=== PATIENT | male | born 1970 | race Caucasian/White ===

== ENCOUNTER 2017-09-04 14:59 | Inpatient (IN) | payer MEDICAID ==
[~2017-09-04] VITALS: Ht 172.7 cm; Wt 64.8 kg
[2017-09-04] MEDS ORDERED: SODIUM CHLORIDE 0.9% 1,000 ML IV ONE (15:42)
[2017-09-04] MEDS ORDERED: ALBUTEROL/IPRATROPIUM 2.5MG/0.5MG, 3 ML ONE (15:53)
[2017-09-04] MEDS ORDERED: ALBUTEROL/IPRATROPIUM 2.5MG/0.5MG, 3 ML NPPB ONE (16:00)
[2017-09-04] MEDS ORDERED: SODIUM CHLORIDE FLUSH 10ML SYR IVF ONE (16:00)
[2017-09-04] MEDS ORDERED: SODIUM CHLORIDE 0.9% 1,000ML IVBOLUS ONE (16:00)
[2017-09-04 16:05] LABS: HEMOGLOBIN 15.4 g/dL (13.7-18.0); WHITE BLOOD COUNT 14.4 x10^3/uL (3.4-10)
[2017-09-04 16:13] LABS: RAPID INFLUENZA A Negative (Negative); RAPID INFLUENZA B Negative (Negative)
[2017-09-04 16:19] LABS: BLOOD UREA NITROGEN 10 mg/dL (7-18)
[2017-09-04 16:25] LABS: ASPARTATE AMINO TRANSFERASE 16 U/L (15-37)
[2017-09-04 16:28] LABS: IS PT STATUS REG ER OR PRE ER? YES
[2017-09-04] MEDS ORDERED: AZITHROMYCIN 500 MG in SODIUM CHLORIDE 0.9% 250 ML IVPB ONE (17:00)
[2017-09-04] MEDS ORDERED: CEFTRIAXONE PMX 1GM/50ML 50 ML IVPB ONE (17:00)
[2017-09-04] MEDS ORDERED: SODIUM CHLORIDE FLUSH 10ML SYR IVF PRN (17:00)
[2017-09-04] MEDS ORDERED: morphine SULFATE 10 MG/ML, 1ML IVPush PRN (17:30)
[2017-09-04] MEDS ORDERED: hydrALAzine 20 MG/ML, 1ML IVPush PRN (17:30)
[2017-09-04] MEDS ORDERED: ZOLPIDEM 5MG TABLET PO PRN (17:30)
[2017-09-04] MEDS ORDERED: PIPERACILLIN/TAZO/PMX 3.375GM 50 ML IV SCH (17:30)
[2017-09-04] MEDS ORDERED: ACETAMINOPHEN 325 MG TABLET PO PRN (17:30)
[2017-09-04] MEDS ORDERED: VANCOMYCIN PER PHARMACY MC PRN (17:30)
[2017-09-04] MEDS ORDERED: ONDANSETRON 2MG/ML, 2ML IVPush PRN (17:30)
[2017-09-04] MEDS: methylPREDNISolone SOD SUCC 40 MG/ML IVPush SCH ×2 (17:43→23:47)
[2017-09-04] MEDS ORDERED: CEFTRIAXONE PMX 1GM/50ML 50 ML ONE (17:44)
[2017-09-04] MEDS ORDERED: ENOXAPARIN 40 MG/0.4 ML ONE (17:45)
[2017-09-04] MEDS ORDERED: NICOTINE 14MG/24 HR PATCH.TD24 ONE (17:45)
[2017-09-04] MEDS ORDERED: FLUT1AER INH (17:48)
[2017-09-04] MEDS ORDERED: PRED10TA PO (17:48)
[2017-09-04] MEDS ORDERED: ALBU8.5H8 INH (17:48)
[2017-09-04] MEDS: ENOXAPARIN 40 MG/0.4 ML SQ SCH (17:49)
[2017-09-04] MEDS: NICOTINE 14MG/24 HR PATCH.TD24 TD SCH (17:54)
[2017-09-04] MEDS ORDERED: PHARMACOKINETIC MONITORING MC PRN (20:30)
[2017-09-04] MEDS ORDERED: PHARMACOKINETIC CONSULTATION MC ONE (20:30)
[2017-09-04] MEDS: PIPERACILLIN/TAZO 3.375 GM in SODIUM CHLORIDE 0.9% 50 ML IV SCH (20:35)
[2017-09-04] MEDS: SODIUM CHLORIDE 0.9% 1,000 ML IV SCH (20:35)
[2017-09-04] MEDS: VANCOMYCIN 1,300 MG in SODIUM CHLORIDE 0.9% 250 ML IV SCH (21:38)
[2017-09-05 01:54] VITALS: BP 111/75
[2017-09-05] MEDS: PIPERACILLIN/TAZO 3.375 GM in SODIUM CHLORIDE 0.9% 50 ML IV SCH ×4 (02:10→19:43)
[2017-09-05 02:20] VITALS: BP 145/92
[2017-09-05 04:54] LABS: HEMATOCRIT 45.6 % (39.2-51.8); HEMOGLOBIN 15.5 g/dL (13.7-18.0); WHITE BLOOD COUNT 10.1 x10^3/uL (3.4-10)
[2017-09-05 04:55] LABS: BLOOD UREA NITROGEN 10 mg/dL (7-18)
[2017-09-05 04:58] LABS: ASPARTATE AMINO TRANSFERASE 19 U/L (15-37)
[2017-09-05] MEDS ORDERED: ALBUTEROL SULFATE 2.5 MG/3 ML NPPB PRN (05:00)
[2017-09-05] MEDS: methylPREDNISolone SOD SUCC 40 MG/ML IVPush SCH (05:21)
[2017-09-05 08:05] VITALS: BP 132/83
[2017-09-05] MEDS: SODIUM CHLORIDE 0.9% 1,000 ML IV SCH (09:23)
[2017-09-05] MEDS: VANCOMYCIN 1,300 MG in SODIUM CHLORIDE 0.9% 250 ML IV SCH ×2 (09:23→20:42)
[2017-09-05] MEDS ORDERED: SODIUM PHOSPHATE 20 MMOL in SODIUM CHLORIDE 0.9% 500 ML IV ONE (10:00)
[2017-09-05 14:33] VITALS: BP 124/85
[2017-09-05] MEDS: NICOTINE 14MG/24 HR PATCH.TD24 TD SCH (16:20)
[2017-09-05] MEDS: ENOXAPARIN 40 MG/0.4 ML SQ SCH (16:20)
[2017-09-05 21:44] VITALS: BP 130/94
== END 2017-09-05 22:10 | disposition left against medical advice (07) | DRG 871 ==
LOC: ED 16:46 → EDIP 17:00 → SUATTDRO 17:19 → 4EST 19:41
PROVIDERS: ADMIT Internal Medicine; ATTEND Internal Medicine
DX: A41.9 Sepsis, unspecified organism (principal); J18.1 Lobar pneumonia, unspecified organism; D89.9 Disorder involving the immune mechanism, unspecified; E46 Unspecified protein-calorie malnutrition; J82 Pulmonary eosinophilia, not elsewhere classified; Z53.21 Procedure and treatment not carried out due to patient leaving prior to being seen by health care provider; Z68.21 Body mass index [BMI] 21.0-21.9, adult; F17.210 Nicotine dependence, cigarettes, uncomplicated; J45.909 Unspecified asthma, uncomplicated; T38.0X5A Adverse effect of glucocorticoids and synthetic analogues, initial encounter; Z85.72 Personal history of non-Hodgkin lymphomas
CPT/HCPCS: 36415; 71010; 80053; 83605; 83735; 83880; 84100; 84145; 84484; 85025; 87040; 87400; 93005; 93306; 94640; 96361; 96365; J0696; J1650; J3370; J7613; J7620; J2920; J7030; J7040; J7050; J7512

== ENCOUNTER 2018-10-10 14:51 | Inpatient (IN) | payer MEDICAID, OTHER ==
[~2018-10-10] VITALS: Ht 172.7 cm; Wt 71.4 kg
[~2018-10-10 14:51] MED LIST: ALBU8.5H8 INH; FLUT1AER INH; PRED10TA PO
[2018-10-10] MEDS ORDERED: ALBUTEROL/IPRATROPIUM 2.5MG/0.5MG, 3 ML ONE (15:11)
[2018-10-10] MEDS: ALBUTEROL/IPRATROPIUM 2.5MG/0.5MG, 3 ML NPPB SCH ×4 (15:16→22:40)
[2018-10-10 15:25] LABS: BASOPHILS # (AUTO) 0.04 x10^3/uL (0-0.1); BASOPHILS % (AUTO) 0 % (0-1); EOSINOPHILS # (AUTO) 1.62 x10^3/uL (0-0.4); EOSINOPHILS % (AUTO) 12 % (1-7); LYMPHOCYTES # (AUTO) 1.97 x10^3/uL (1-3.4); LYMPHOCYTES % (AUTO) 15 % (22-44); MD NO; MEAN CORPUSCULAR HEMOGLOBIN 30.9 pg (27.5-34.5); MEAN CORPUSCULAR HGB CONC 33.6 g/dL (33.2-36.2); MEAN CORPUSCULAR VOLUME 91.7 fL (81-97); MONOCYTES # (AUTO) 0.99 x10^3/uL (0.2-0.8); MONOCYTES % (AUTO) 8 % (2-9); NEUTROPHILS # (AUTO) 8.57 x10^3/uL (1.8-6.8); NEUTROPHILS % (AUTO) 65 % (42-75); PLATELET COUNT 324 x10^3/uL (130-400); RED BLOOD COUNT 5.31 x10^6/uL (4.38-5.82); RED CELL DISTRIBUTION WIDTH 14.3 % (9.4-14.8)
--- NOTE | 2018-10-10 15:35 | NUR ---
PATIENT PRESENTS TO ED TODAY FOR SOB UPON EXERTION, PATIENT STATES "I AM HOSPITALIZED EVERY 3-4 WEEKS. HX- PNA AND ASTHMA. RT COMPLETED BREATHING TREATMENT, LABS DRAWN, XRAY COMPLETED, AWAITING RESULTS. SUPPLEMENTAL O2 GIVEN FO 88% RA, PATIENT 92% 3L NC, PATIENT DENIES HOME 02. SKIN WARM, PINK, DRY, PATIENT SPEAKING FULL SENTENCES. VS UPDATED IN CHART, INSOLE PRESSER ON PATIENT, CALL LIGHT WITHIN REACH.
[2018-10-10 15:38] LABS: ALBUMIN 3.3 g/dL (3.4-5.0); ANION GAP 7 mmol/L (5-15); CALCIUM 8.4 mg/dL (8.5-10.1); CHLORIDE 109 mmol/L (98-107); CREATININE 0.95 mg/dL (0.7-1.3)
[2018-10-10] MEDS ORDERED: ALBU0.63 NEB (15:42)
[2018-10-10 15:45] LABS: TROPONIN I < 0.015 ng/mL (0.000-0.045)
--- NOTE | 2018-10-10 15:54 | NUR ---
LAB AT BEDSIDE FOR BLOOD CULTURES.
[2018-10-10] MEDS ORDERED: AZITHROMYCIN 500 MG in SODIUM CHLORIDE 0.9% 250 ML IV ONE (16:00)
[2018-10-10 16:03] LABS: HCT (SEDRATE) 48.7 % (39.2-51.8)
--- NOTE | 2018-10-10 16:05 | NUR ---
IV ESTABLISHED, BLOOD CULTURES DRAWN X 2, ABX AMINISTERED. PATIENT SITTING COMFORTABLY ON GURNEY WATCHING TV, NADN.
--- NOTE | 2018-10-10 16:30 | NUR ---
ADMITING MD IN ROOM WITH PATIENT
[2018-10-10] MEDS ORDERED: ACETAMINOPHEN 325 MG TABLET PO PRN (17:00)
[2018-10-10] MEDS ORDERED: ALBUTEROL SULFATE 2.5 MG/3 ML NPPB PRN (17:00)
[2018-10-10] MEDS ORDERED: LABETALOL 5MG/ML, 20ML IVPush PRN (17:00)
[2018-10-10] MEDS ORDERED: hydrALAzine 20 MG/ML, 1ML IVPush PRN (17:00)
[2018-10-10] MEDS ORDERED: ALBUTEROL/IPRATROPIUM 2.5MG/0.5MG, 3 ML HHN SCH (17:00)
--- NOTE | 2018-10-10 17:05 | NUR ---
PATIENT TO CT, NAD NOTED.
--- NOTE | 2018-10-10 17:18 | NUR ---
PATIENT BACK FROM CT, SITTING COMFORTABLY ON BAKARI CAMPBELL. VS UPDATED IN CHART.
[2018-10-10] MEDS ORDERED: OMNIPAQUE 350 MG/ML, 75ML BOTTLE ONE (17:25)
--- NOTE | 2018-10-10 17:28 | NUR ---
REPORT TO ANGEL LUIS CERVANTES.
--- NOTE | 2018-10-10 17:32 | NUR ---
PATIENT TRANSFERRED/ADMITTED TO HOSPITAL BED UPSTAIRS AT THIS TIME.
[2018-10-10 17:39] LABS: INTERNATIONAL NORMALIZED RATIO 1.08 (0.93-1.1); PROTHROMBIN TIME 11.4 Seconds (9.6-11.5)
[2018-10-10 17:45] LABS: TROPONIN I < 0.015 ng/mL (0.000-0.045)
[2018-10-10 17:55] VITALS: BP 109/75
[2018-10-10] MEDS: HEPARIN 5,000 UNITS/ML, 1ML SQ SCH (18:00)
[2018-10-10] MEDS: GUAIFENESIN 200 MG TABLET PO SCH ×2 (18:18→20:24)
[2018-10-10] MEDS: methylPREDNISolone SOD SUCC 125 MG/2 ML IVPush SCH (18:18)
[2018-10-10] MEDS: SODIUM CHLORIDE 0.9% 1,000 ML IV SCH (18:18)
[2018-10-10] MEDS ORDERED: CEFTRIAXONE PMX 1GM/50ML 50 ML IV SCH (18:30)
[2018-10-10 19:25] VITALS: BP 110/76
[2018-10-10] MEDS: BUDESONIDE 0.5 MG/2 ML INHA INH SCH ×2 (19:41→21:00)
[2018-10-10] MEDS: DOXYCYCLINE 100MG TABLET PO SCH (20:24)
[2018-10-10 22:06] LABS: RAPID INFLUENZA A Negative (Negative); RAPID INFLUENZA B Negative (Negative)
[2018-10-10 23:01] LABS: TROPONIN I < 0.015 ng/mL (0.000-0.045)
[2018-10-11] MEDS: methylPREDNISolone SOD SUCC 125 MG/2 ML IVPush SCH ×3 (00:18→11:35)
[2018-10-11] MEDS: HEPARIN 5,000 UNITS/ML, 1ML SQ SCH ×2 (00:19→10:00)
[2018-10-11 01:11] VITALS: BP 128/77
[2018-10-11] MEDS: GUAIFENESIN 200 MG TABLET PO SCH ×2 (06:00→11:35)
[2018-10-11] MEDS: ALBUTEROL/IPRATROPIUM 2.5MG/0.5MG, 3 ML NPPB SCH ×2 (06:00→10:00)
[2018-10-11 06:01] LABS: ALBUMIN 3.1 g/dL (3.4-5.0); ANION GAP 4 mmol/L (5-15); CALCIUM 8.5 mg/dL (8.5-10.1); CHLORIDE 108 mmol/L (98-107)
[2018-10-11 06:06] LABS: ALANINE AMINOTRANSFERASE 21 U/L (12-78); ALKALINE PHOSPHATASE 78 U/L (45-117); BILIRUBIN,TOTAL 0.5 mg/dL (0.2-1.0); CREATININE 0.92 mg/dL (0.7-1.3); TOTAL PROTEIN 7.1 g/dL (6.4-8.2)
[2018-10-11 06:15] LABS: BASOPHILS # (AUTO) 0.01 x10^3/uL (0-0.1); BASOPHILS % (AUTO) 0 % (0-1); EOSINOPHILS % (AUTO) 0 % (1-7); LYMPHOCYTES # (AUTO) 0.66 x10^3/uL (1-3.4); LYMPHOCYTES % (AUTO) 8 % (22-44); MD NO; MEAN CORPUSCULAR HEMOGLOBIN 30.6 pg (27.5-34.5); MEAN CORPUSCULAR HGB CONC 33.8 g/dL (33.2-36.2); MEAN CORPUSCULAR VOLUME 90.8 fL (81-97); MEAN PLATELET VOLUME 8.1 fL (7.4-10.4); MONOCYTES # (AUTO) 0.09 x10^3/uL (0.2-0.8); MONOCYTES % (AUTO) 1 % (2-9); NEUTROPHILS # (AUTO) 7.93 x10^3/uL (1.8-6.8); NEUTROPHILS % (AUTO) 91 % (42-75); PLATELET COUNT 335 x10^3/uL (130-400); RED BLOOD COUNT 4.99 x10^6/uL (4.38-5.82); RED CELL DISTRIBUTION WIDTH 13.9 % (9.4-14.8)
[2018-10-11] MEDS: BUDESONIDE 0.5 MG/2 ML INHA INH SCH (07:23)
[2018-10-11 07:49] VITALS: BP 123/79
[2018-10-11] MEDS: DOXYCYCLINE 100MG TABLET PO SCH (08:09)
[2018-10-11] MEDS: SODIUM CHLORIDE 0.9% 1,000 ML IV SCH (11:35)
== END 2018-10-11 13:39 | disposition left against medical advice (07) | DRG 196 ==
LOC: ED 16:31 → EDIP 16:32 → 3NE 17:35
PROVIDERS: ADMIT Hospitalist; ATTEND Hospitalist
DX: J82 Pulmonary eosinophilia, not elsewhere classified (principal); J96.01 Acute respiratory failure with hypoxia; J18.9 Pneumonia, unspecified organism; E44.1 Mild protein-calorie malnutrition; J44.1 Chronic obstructive pulmonary disease with (acute) exacerbation; J44.0 Chronic obstructive pulmonary disease with (acute) lower respiratory infection; J45.901 Unspecified asthma with (acute) exacerbation; D89.9 Disorder involving the immune mechanism, unspecified; I45.81 Long QT syndrome; J20.9 Acute bronchitis, unspecified; R00.0 Tachycardia, unspecified; R91.1 Solitary pulmonary nodule; Z79.52 Long term (current) use of systemic steroids; Z68.23 Body mass index [BMI] 23.0-23.9, adult; Z85.71 Personal history of Hodgkin lymphoma; Z85.72 Personal history of non-Hodgkin lymphomas; Z87.891 Personal history of nicotine dependence; Z90.81 Acquired absence of spleen
CPT/HCPCS: 36415; 84145; 87400; 99285; J7620; J7626; 71045; 71260; 80048; 80053; 82040; 83605; 83880; 84484; 85025; 85379; 85610; 85651; 85730; 86140; 87040; 87070; 87077; 87205; 93005; 94640; G0378; J0456; J0696; Q9967; J2930; J7030; J7050; J7512

== ENCOUNTER 2018-11-05 19:40 | Inpatient (IN) | payer OTHER ==
[~2018-11-05] VITALS: Ht 172.7 cm; Wt 71.7 kg
[~2018-11-05 19:40] MED LIST changes: +ALBU0.63 NEB
--- NOTE | 2018-11-05 19:44 | NUR ---
ALTON APODACA, AT BEDSIDE TO EVALUATE PT.
[2018-11-05] MEDS ORDERED: ALBUTEROL/IPRATROPIUM 2.5MG/0.5MG, 3 ML NPPB ONE (20:00)
[2018-11-05] MEDS ORDERED: ALBUTEROL/IPRATROPIUM 2.5MG/0.5MG, 3 ML ONE (20:14)
[2018-11-05] MEDS ORDERED: BUDESONIDE 0.5 MG/2 ML INHA ONE (20:14)
--- NOTE | 2018-11-05 20:25 | NUR ---
RT at bedside.
[2018-11-05] MEDS ORDERED: ALBUTEROL/IPRATROPIUM 2.5MG/0.5MG, 3 ML NEB ONE (20:30)
[2018-11-05] MEDS ORDERED: BUDESONIDE 0.5 MG/2 ML INHA INH ONE (20:30)
--- NOTE | 2018-11-05 20:50 | NUR ---
Pt resting on gurney, on continous albuterol. Pt states he feels ok while not moving around and not talking, however SOB if he talks a lot.
[2018-11-05] MEDS ORDERED: ALBUTEROL SULFATE 2.5MG/0.5ML ONE (20:57)
[2018-11-05] MEDS ORDERED: ALBUTEROL 0.5%, 20ML NPPBCONT PRN (21:00)
--- NOTE | 2018-11-05 21:40 | NUR ---
BREAK RN: Patient with continuous nebulizer, reporting some improvement in shortness of breath.
--- NOTE | 2018-11-05 22:52 | NUR ---
Dr. Felix at bedside to discuss ED findings and POC. Pt aware of plan to be admitted to the hospital. Pt states that he will not AMA this time.
--- NOTE | 2018-11-05 23:13 | NUR ---
Zahra ALVAREZ, at bedside to evaluate pt for admission.
--- NOTE | 2018-11-05 23:21 | NUR ---
SBAR given to RNGriselda. Pt made aware of new room assignment.
[2018-11-06] MEDS ORDERED: DOCUSATE 100 MG CAPSULE PO PRN
[2018-11-06] MEDS ORDERED: GABAPENTIN 300 MG CAPSULE PO PRN
[2018-11-06] MEDS ORDERED: LIDODERM 5% PATCH TD PRN
[2018-11-06] MEDS ORDERED: hydrALAzine 20 MG/ML, 1ML IVPush PRN
[2018-11-06] MEDS ORDERED: DIPHENHYDRAMINE 25 MG CAPSULE PO PRN
[2018-11-06] MEDS ORDERED: ONDANSETRON ODT 4 MG PO PRN
[2018-11-06 00:03] VITALS: BP 130/72
[2018-11-06 02:00] VITALS: BP 130/72
[2018-11-06] MEDS: GUAIFENESIN/DM 100-10MG, 5ML UDC PO PRN ×2 (03:39→14:19)
[2018-11-06 05:03] LABS: BASOPHILS # (AUTO) 0.01 x10^3/uL (0-0.1); BASOPHILS % (AUTO) 0 % (0-1); EOSINOPHILS # (AUTO) 0.01 x10^3/uL (0-0.4); EOSINOPHILS % (AUTO) 0 % (1-7); LYMPHOCYTES # (AUTO) 0.77 x10^3/uL (1-3.4); LYMPHOCYTES % (AUTO) 12 % (22-44); MD NO; MEAN CORPUSCULAR HEMOGLOBIN 30.1 pg (27.5-34.5); MEAN CORPUSCULAR HGB CONC 33.3 g/dL (33.2-36.2); MEAN CORPUSCULAR VOLUME 90.5 fL (81-97); MEAN PLATELET VOLUME 7.8 fL (7.4-10.4); MONOCYTES % (AUTO) 5 % (2-9); NEUTROPHILS # (AUTO) 5.18 x10^3/uL (1.8-6.8); NEUTROPHILS % (AUTO) 83 % (42-75); PLATELET COUNT 334 x10^3/uL (130-400); RED BLOOD COUNT 4.97 x10^6/uL (4.38-5.82); RED CELL DISTRIBUTION WIDTH 15.1 % (9.4-14.8)
[2018-11-06 05:15] LABS: ANION GAP 6 mmol/L (5-15); CALCIUM 8.4 mg/dL (8.5-10.1); CHLORIDE 112 mmol/L (98-107)
[2018-11-06 05:16] LABS: CREATININE 0.92 mg/dL (0.7-1.3)
[2018-11-06] MEDS: ALBUTEROL SULFATE 2.5 MG/3 ML NPPB SCH ×3 (07:30→15:33)
[2018-11-06 07:59] VITALS: BP 130/73
[2018-11-06] MEDS ORDERED: BUDESONIDE 0.5 MG/2 ML INHA INH SCH (09:00)
[2018-11-06] MEDS ORDERED: ACETAMINOPHEN 325 MG TABLET PO PRN ×2 (09:00)
[2018-11-06] MEDS ORDERED: SODIUM CHLORIDE 0.9% 1,000 ML IV SCH ×2 (09:00)
[2018-11-06] MEDS ORDERED: ENOXAPARIN 40 MG/0.4 ML SQ SCH (09:00)
[2018-11-06 12:47] VITALS: BP 120/75
== END 2018-11-06 17:51 | disposition home or self-care (01) | DRG 189 ==
LOC: ED 20:26 → EDIP 22:48 → 4EST 23:40
PROVIDERS: ADMIT Internal Medicine; ATTEND Internal Medicine
DX: J96.01 Acute respiratory failure with hypoxia (principal); J44.1 Chronic obstructive pulmonary disease with (acute) exacerbation; J45.901 Unspecified asthma with (acute) exacerbation; J98.11 Atelectasis; D89.9 Disorder involving the immune mechanism, unspecified; F17.200 Nicotine dependence, unspecified, uncomplicated; Z87.01 Personal history of pneumonia (recurrent); Z85.72 Personal history of non-Hodgkin lymphomas; Z90.81 Acquired absence of spleen
CPT/HCPCS: 36415; 99285; J7613; J7620; J7626; 71045; 80048; 85025; 93005; 94640; G0378; J1650; J7030; J7512

== ENCOUNTER 2019-08-25 00:09 | Inpatient (IN) | payer OTHER ==
[~2019-08-25] VITALS: Ht 172.7 cm; Wt 75.8 kg
[2019-08-25] MEDS ORDERED: methylPREDNISolone SOD SUCC 125 MG/2 ML ONE (00:32)
[2019-08-25] MEDS ORDERED: SODIUM CHLORIDE 0.9% 1,000 ML IV ONE (02:25)
[2019-08-25] MEDS ORDERED: CEFTRIAXONE PMX 1GM/50ML 50 ML IVPB ONE (02:30)
[2019-08-25] MEDS ORDERED: AZITHROMYCIN 500 MG in SODIUM CHLORIDE 0.9% 250 ML IVPB ONE (02:30)
[2019-08-25] MEDS ORDERED: CEFTRIAXONE PMX 1GM/50ML 50 ML ONE (02:36)
[2019-08-25] MEDS ORDERED: ALBUTEROL/IPRATROPIUM 2.5MG/0.5MG, 3 ML NPPB PRN (03:00)
[2019-08-25] MEDS ORDERED: ONDANSETRON 2MG/ML, 2ML IVPush PRN (03:00)
[2019-08-25] MEDS ORDERED: ACETAMINOPHEN 325 MG TABLET PO PRN (03:00)
[2019-08-25] MEDS: ALBUTEROL SULFATE 2.5 MG/3 ML NPPB SCH ×4 (03:30→20:02)
[2019-08-25 03:39] VITALS: BP 118/85
[2019-08-25] MEDS: SODIUM CHLORIDE 0.9% 1,000 ML IV SCH ×2 (04:02→12:09)
[2019-08-25 07:21] VITALS: BP 115/76
[2019-08-25] MEDS: BUDESONIDE 0.5 MG/2 ML INHA INH SCH ×2 (07:53→20:02)
[2019-08-25] MEDS: methylPREDNISolone SOD SUCC 40 MG/ML IV SCH ×2 (12:04→18:23)
[2019-08-25 13:52] VITALS: BP 144/88
[2019-08-25 14:37] LABS: ALBUMIN 3.4 g/dL (3.4-5.0); ANION GAP 5 mmol/L (5-15); CALCIUM 8.4 mg/dL (8.5-10.1); CHLORIDE 111 mmol/L (98-107); CREATININE 1.15 mg/dL (0.7-1.3); TROPONIN I 0.017 ng/mL (0.000-0.045)
[2019-08-25 14:51] LABS: MEAN CORPUSCULAR HEMOGLOBIN 30.6 pg (27.5-34.5); MEAN CORPUSCULAR HGB CONC 32.7 g/dL (33.2-36.2); MEAN CORPUSCULAR VOLUME 93.6 fL (81-97); MEAN PLATELET VOLUME 7.8 fL (7.4-10.4); PLATELET COUNT 360 x10^3/uL (130-400); RED BLOOD COUNT 5.37 x10^6/uL (4.38-5.82); RED CELL DISTRIBUTION WIDTH 14.7 % (9.4-14.8)
[2019-08-25 14:52] LABS: BASOPHILS # (AUTO) 0.18 x10^3/uL (0-0.1); BASOPHILS % (AUTO) 0 % (0-1); EOSINOPHILS # (AUTO) 1.47 x10^3/uL (0-0.4); EOSINOPHILS % (AUTO) 1 % (1-7); LYMPHOCYTES # (AUTO) 12.68 x10^3/uL (1-3.4); LYMPHOCYTES % (AUTO) 22 % (22-44); MD NO; MONOCYTES # (AUTO) 4.13 x10^3/uL (0.2-0.8); MONOCYTES % (AUTO) 8 % (2-9); NEUTROPHILS % (AUTO) 68 % (42-75)
[2019-08-25] MEDS: DOXYCYCLINE 100MG TABLET PO SCH (20:23)
[2019-08-25] MEDS: CEFTRIAXONE PMX 2GM/50ML 50 ML IV SCH (20:23)
[2019-08-25 20:33] VITALS: BP 147/88
[2019-08-26] MEDS: methylPREDNISolone SOD SUCC 40 MG/ML IV SCH ×4 (00:46→18:28)
[2019-08-26 01:11] VITALS: BP 138/82
[2019-08-26] MEDS: ALBUTEROL SULFATE 2.5 MG/3 ML NPPB SCH ×4 (02:09→20:27)
[2019-08-26 04:27] LABS: MEAN CORPUSCULAR HEMOGLOBIN 31.4 pg (27.5-34.5); MEAN CORPUSCULAR HGB CONC 32.7 g/dL (33.2-36.2); MEAN CORPUSCULAR VOLUME 95.8 fL (81-97); MEAN PLATELET VOLUME 8.4 fL (7.4-10.4); PLATELET COUNT 342 x10^3/uL (130-400); RED BLOOD COUNT 5.14 x10^6/uL (4.38-5.82); RED CELL DISTRIBUTION WIDTH 14.1 % (9.4-14.8)
[2019-08-26 04:40] LABS: ANION GAP 5 mmol/L (5-15); CALCIUM 8.4 mg/dL (8.5-10.1); CHLORIDE 108 mmol/L (98-107); CREATININE 0.87 mg/dL (0.7-1.3)
[2019-08-26 05:43] LABS: BASOPHILS % (AUTO) 0 % (0-1); EOSINOPHILS # (AUTO) 0.02 x10^3/uL (0-0.4); EOSINOPHILS % (AUTO) 0 % (1-7); LYMPHOCYTES # (AUTO) 1.92 x10^3/uL (1-3.4); LYMPHOCYTES % (AUTO) 9 % (22-44); MD SCAN; MONOCYTES # (AUTO) 0.51 x10^3/uL (0.2-0.8); MONOCYTES % (AUTO) 2 % (2-9); NEUTROPHILS # (AUTO) 18.89 x10^3/uL (1.8-6.8); NEUTROPHILS % (AUTO) 89 % (42-75)
[2019-08-26 06:41] VITALS: BP 144/82
[2019-08-26] MEDS: BUDESONIDE 0.5 MG/2 ML INHA INH SCH ×2 (07:14→20:27)
[2019-08-26] MEDS ORDERED: LEVOFLOXACIN/PMX 750MG/150ML 150 ML IV SCH (08:00)
[2019-08-26] MEDS: DOXYCYCLINE 100MG TABLET PO SCH ×2 (08:04→20:52)
[2019-08-26 12:26] VITALS: BP 134/72
[2019-08-26 18:35] VITALS: BP 136/92
[2019-08-26] MEDS: CEFTRIAXONE PMX 2GM/50ML 50 ML IV SCH (20:52)
[2019-08-27 00:20] VITALS: BP 147/82
[2019-08-27] MEDS: methylPREDNISolone SOD SUCC 40 MG/ML IV SCH ×2 (00:28→05:43)
[2019-08-27] MEDS: ALBUTEROL SULFATE 2.5 MG/3 ML NPPB SCH ×2 (02:29→07:22)
[2019-08-27 05:37] LABS: ANION GAP 6 mmol/L (5-15); CALCIUM 8.4 mg/dL (8.5-10.1); CHLORIDE 106 mmol/L (98-107); CREATININE 0.89 mg/dL (0.7-1.3)
[2019-08-27 05:43] LABS: MEAN CORPUSCULAR HEMOGLOBIN 31.5 pg (27.5-34.5); MEAN CORPUSCULAR VOLUME 95.5 fL (81-97); MEAN PLATELET VOLUME 8.4 fL (7.4-10.4); PLATELET COUNT 333 x10^3/uL (130-400); RED CELL DISTRIBUTION WIDTH 14.6 % (9.4-14.8)
[2019-08-27 06:16] LABS: MD YES
[2019-08-27 06:17] LABS: <RBC MORPHOLOGY> NORMAL; BAND#(MANUAL) 0.57 x10^3/uL; BANDS%(MANUAL) 2 % (0-7); LYMPH#(MANUAL) 1.13 x10^3/uL (1-3.4); LYMPHS% (MANUAL) 4 % (22-44); MONOS#(MANUAL) 0.28 x10^3/uL (0.3-2.7); MONOS% (MANUAL) 1 % (2-9); SEG#(MANUAL) 26.32 x10^3/uL (1.8-6.8); SEGS% (MANUAL) 93 % (42-75)
[2019-08-27 06:18] LABS: <PLATELET ESTIMATE> ADEQUATE; <PLT MORPHOLOGY> NORMAL PLT MORPH
[2019-08-27] MEDS ORDERED: PRED20TA PO (07:15)
[2019-08-27 07:55] VITALS: BP 143/80
[2019-08-27] MEDS ORDERED: FLU VACC QS2019-20 36MOS UP/PF 0.5 ML IM ONE (08:30)
[2019-08-27] MEDS ORDERED: BUDESONIDE 0.5 MG/2 ML INHA INH SCH (09:00)
== END 2019-08-27 09:35 | disposition home or self-care (01) | DRG 189 ==
LOC: ED 01:23 → OBSVTOIN 02:25 → EDIP 02:25 → 4WST 03:18
PROVIDERS: ADMIT Internal Medicine; ATTEND Family Medicine
DX: J96.01 Acute respiratory failure with hypoxia (principal); J15.9 Unspecified bacterial pneumonia; C81.90 Hodgkin lymphoma, unspecified, unspecified site; J44.0 Chronic obstructive pulmonary disease with (acute) lower respiratory infection; J44.1 Chronic obstructive pulmonary disease with (acute) exacerbation; J45.902 Unspecified asthma with status asthmaticus; J82 Pulmonary eosinophilia, not elsewhere classified; Z72.0 Tobacco use; Z79.52 Long term (current) use of systemic steroids; Z90.81 Acquired absence of spleen; Z92.21 Personal history of antineoplastic chemotherapy; Z92.3 Personal history of irradiation; Z99.81 Dependence on supplemental oxygen
CPT/HCPCS: 36415; 84145; J7613; J7626; 71046; 80048; 82040; 83880; 84484; 85025; 87040; 90686; 93005; 94640; 96360; 99291; G0378; J0456; J0696; J2920; J7030; J7050

== ENCOUNTER 2019-11-17 10:09 | Inpatient (IN) | payer OTHER ==
[~2019-11-17] VITALS: Ht 172.7 cm; Wt 72.3 kg
[~2019-11-17 10:09] MED LIST changes: +PRED20TA PO
--- NOTE | 2019-11-17 10:36 | NUR ---
PT HERE FOR SOB- USE OF ACCESSORY MUSCLES NOTED, PT SPEAKING ONLY A FEW WORDS BETWEEN BREATHS. PT RESTING ON GURNEY. CONNECTED TO MONITOR. 94% ON RA. PT USED ALBUTEROL THIS AM AT 0845.
[2019-11-17] MEDS ORDERED: methylPREDNISolone SOD SUCC 125 MG/2 ML ONE (10:53)
[2019-11-17] MEDS ORDERED: ALBUTEROL/IPRATROPIUM 2.5MG/0.5MG, 3 ML NPPB ONE (11:00)
[2019-11-17] MEDS ORDERED: ALBUTEROL/IPRATROPIUM 2.5MG/0.5MG, 3 ML ONE (11:03)
--- NOTE | 2019-11-17 11:03 | NUR ---
PIV STARTED. BLOOD DRAWN, SENT TO LAB. PT MEDICATED PER EMAR. RESPIRATORY AT BEDSIDE.
[2019-11-17 11:18] LABS: MEAN CORPUSCULAR HEMOGLOBIN 31.2 pg (27.5-34.5); MEAN CORPUSCULAR HGB CONC 33.8 g/dL (33.2-36.2); MEAN CORPUSCULAR VOLUME 92.3 fL (81-97); MEAN PLATELET VOLUME 8.2 fL (7.4-10.4); PLATELET COUNT 380 x10^3/uL (130-400)
[2019-11-17 11:29] LABS: ALANINE AMINOTRANSFERASE 52 U/L (12-78); ALBUMIN 3.5 g/dL (3.4-5.0); ANION GAP 7 mmol/L (5-15); CALCIUM 8.6 mg/dL (8.5-10.1); CHLORIDE 107 mmol/L (98-107); CREATININE 1.09 mg/dL (0.7-1.3)
--- NOTE | 2019-11-17 11:29 | NUR ---
BREAK RN: PT VSS, RT TREATMENT COMPLETED. SP02 = 92-93% ON RA. CALL LIGHT W/I REACH..
[2019-11-17 11:32] LABS: ALKALINE PHOSPHATASE 63 U/L (45-117); BILIRUBIN,TOTAL 0.5 mg/dL (0.2-1.0); TOTAL PROTEIN 6.6 g/dL (6.4-8.2)
[2019-11-17 11:57] LABS: MD YES
[2019-11-17 11:59] LABS: BAND#(MANUAL) 0.36 x10^3/uL; BANDS%(MANUAL) 2 % (0-7); LYMPH#(MANUAL) 0.72 x10^3/uL (1-3.4); LYMPHS% (MANUAL) 4 % (22-44); MONOS#(MANUAL) 0.72 x10^3/uL (0.3-2.7); MONOS% (MANUAL) 4 % (2-9); SEG#(MANUAL) 16.11 x10^3/uL (1.8-6.8); SEGS% (MANUAL) 90 % (42-75)
[2019-11-17 12:00] LABS: <PLATELET ESTIMATE> ADEQUATE; <PLT MORPHOLOGY> NORMAL PLT MORPH; <RBC MORPHOLOGY> NORMAL
[2019-11-17] MEDS ORDERED: methylPREDNISolone SOD SUCC 125 MG/2 ML IV ONE (12:00)
[2019-11-17] MEDS ORDERED: SODIUM CHLORIDE FLUSH 10ML SYR IVF ONE (12:00)
--- NOTE | 2019-11-17 12:19 | NUR ---
PT AWARE OF POC RE:ADMISSION. PT RESTING ON GURNEY. BREATHING IS LESS LABORED NOW. NADN. PLACED ON 2L NC HE WAS 90% ON RA. DENIES NEEDS AT THIS TIME. VSS. 93% ON 2LNC.
[2019-11-17] MEDS ORDERED: SODIUM CHLORIDE FLUSH 10ML SYR IVF PRN (13:00)
--- NOTE | 2019-11-17 13:10 | NUR ---
REPORT GIVEN TO ANGEL LUIS WADE.
[2019-11-17] MEDS ORDERED: BISACODYL 10 MG SUPP PR PRN (14:00)
[2019-11-17] MEDS ORDERED: ONDANSETRON 2MG/ML, 2ML IVPush PRN (14:00)
[2019-11-17] MEDS ORDERED: ACETAMINOPHEN 325 MG TABLET PO PRN (14:00)
[2019-11-17] MEDS ORDERED: POLYETHYLENE GLYCOL 17 GM PACKET PO PRN (14:00)
[2019-11-17] MEDS ORDERED: PROMETHAZINE 25 MG/ML, 1ML IM PRN (14:00)
[2019-11-17] MEDS ORDERED: DOCUSATE 100 MG CAPSULE PO PRN (14:00)
[2019-11-17] MEDS ORDERED: DEXTROSE 50%, 50ML SYRINGE IVPush PRN (14:30)
[2019-11-17] MEDS ORDERED: DEXTROSE 4 GM TAB.CHEW PO PRN (14:30)
[2019-11-17] MEDS ORDERED: ALBUTEROL SULFATE 2.5 MG/3 ML NEB PRN (14:30)
[2019-11-17] MEDS ORDERED: GLUCAGON 1 MG IM PRN (14:30)
[2019-11-17] MEDS ORDERED: methylPREDNISolone SOD SUCC 40 MG/ML ONE (14:58)
[2019-11-17] MEDS: ENOXAPARIN 40 MG/0.4 ML SQ SCH (15:12)
[2019-11-17] MEDS: methylPREDNISolone SOD SUCC 125 MG/2 ML IVPush SCH ×2 (15:12→20:18)
[2019-11-17 16:09] VITALS: BP 112/74
[2019-11-17] MEDS: INSULIN LISPRO 100 UNITS/ML, PEN SQ-INSULIN SCH ×2 (17:31→20:20)
[2019-11-17] MEDS: ALBUTEROL SULFATE 2.5 MG/3 ML NPPB SCH (18:43)
[2019-11-17] MEDS: BUDESONIDE 0.5 MG/2 ML INHA NPPB SCH (18:43)
[2019-11-17] MEDS: SODIUM CHLORIDE FLUSH 10ML SYR IVF SCH (20:19)
[2019-11-17 20:45] VITALS: BP 99/65
[2019-11-17 20:59] VITALS: BP 99/65
[2019-11-18 01:28] VITALS: BP 134/70
[2019-11-18] MEDS: methylPREDNISolone SOD SUCC 125 MG/2 ML IVPush SCH ×4 (02:19→21:02)
[2019-11-18] MEDS: ALBUTEROL SULFATE 2.5 MG/3 ML NPPB SCH ×4 (03:00→20:33)
[2019-11-18 04:46] LABS: MEAN CORPUSCULAR HGB CONC 33.2 g/dL (33.2-36.2); MEAN CORPUSCULAR VOLUME 93.5 fL (81-97); PLATELET COUNT 380 x10^3/uL (130-400); RED BLOOD COUNT 4.94 x10^6/uL (4.38-5.82); RED CELL DISTRIBUTION WIDTH 14.9 % (9.4-14.8)
[2019-11-18 04:50] LABS: ANION GAP 4 mmol/L (5-15); CALCIUM 8.2 mg/dL (8.5-10.1); CHLORIDE 109 mmol/L (98-107)
[2019-11-18 04:54] LABS: ALANINE AMINOTRANSFERASE 52 U/L (12-78); ALKALINE PHOSPHATASE 59 U/L (45-117); BILIRUBIN,TOTAL 0.4 mg/dL (0.2-1.0); CREATININE 0.99 mg/dL (0.7-1.3); TOTAL PROTEIN 6.1 g/dL (6.4-8.2)
[2019-11-18 05:18] LABS: MD YES
[2019-11-18 05:19] LABS: BAND#(MANUAL) 0.23 x10^3/uL; BANDS%(MANUAL) 1 % (0-7); LYMPH#(MANUAL) 0.68 x10^3/uL (1-3.4); LYMPHS% (MANUAL) 3 % (22-44); MONOS% (MANUAL) 4 % (2-9); SEG#(MANUAL) 20.79 x10^3/uL (1.8-6.8); SEGS% (MANUAL) 92 % (42-75)
[2019-11-18 05:20] LABS: <PLATELET ESTIMATE> ADEQUATE; <PLT MORPHOLOGY> NORMAL PLT MORPH; <RBC MORPHOLOGY> NORMAL
[2019-11-18] MEDS: INSULIN LISPRO 100 UNITS/ML, PEN SQ-INSULIN SCH ×4 (07:00→21:00)
[2019-11-18 08:09] VITALS: BP 145/95
[2019-11-18] MEDS: SODIUM CHLORIDE FLUSH 10ML SYR IVF SCH ×2 (08:33→21:02)
[2019-11-18] MEDS: BUDESONIDE 0.5 MG/2 ML INHA NPPB SCH ×2 (08:49→20:33)
[2019-11-18] MEDS ORDERED: TEMPLATE NON-FORMULARY MED. (Fluticasone/Vilanterol (Breo Ellipta 100-25 Mcg Inh) 1 PUFF) INH SCH (09:00)
[2019-11-18 13:05] VITALS: BP 119/82
[2019-11-18] MEDS: ENOXAPARIN 40 MG/0.4 ML SQ SCH (14:00)
[2019-11-18 18:22] VITALS: BP 115/74
[2019-11-19] MEDS: methylPREDNISolone SOD SUCC 125 MG/2 ML IVPush SCH ×2 (02:05→07:47)
[2019-11-19] MEDS: ALBUTEROL SULFATE 2.5 MG/3 ML NPPB SCH ×2 (02:11→07:15)
[2019-11-19 02:22] VITALS: BP 138/86
[2019-11-19 05:31] LABS: MEAN CORPUSCULAR HGB CONC 33.3 g/dL (33.2-36.2); MEAN CORPUSCULAR VOLUME 93.1 fL (81-97); MEAN PLATELET VOLUME 7.9 fL (7.4-10.4); PLATELET COUNT 374 x10^3/uL (130-400); RED BLOOD COUNT 4.93 x10^6/uL (4.38-5.82); RED CELL DISTRIBUTION WIDTH 14.6 % (9.4-14.8)
[2019-11-19 05:40] LABS: ANION GAP 7 mmol/L (5-15); CALCIUM 8.6 mg/dL (8.5-10.1); CHLORIDE 108 mmol/L (98-107); CREATININE 1.05 mg/dL (0.7-1.3)
[2019-11-19 06:23] LABS: MD YES
[2019-11-19 06:24] LABS: LYMPH#(MANUAL) 0.49 x10^3/uL (1-3.4); LYMPHS% (MANUAL) 2 % (22-44)
[2019-11-19 06:25] LABS: <RBC MORPHOLOGY> NORMAL; MONOS#(MANUAL) 0.24 x10^3/uL (0.3-2.7); MONOS% (MANUAL) 1 % (2-9); SEG#(MANUAL) 23.67 x10^3/uL (1.8-6.8); SEGS% (MANUAL) 97 % (42-75)
[2019-11-19 06:26] LABS: <PLATELET ESTIMATE> ADEQUATE; <PLT MORPHOLOGY> NORMAL PLT MORPH
[2019-11-19] MEDS: BUDESONIDE 0.5 MG/2 ML INHA NPPB SCH (07:15)
[2019-11-19 07:43] VITALS: BP 148/92
[2019-11-19] MEDS: INSULIN LISPRO 100 UNITS/ML, PEN SQ-INSULIN SCH ×2 (07:50→11:00)
[2019-11-19] MEDS: SODIUM CHLORIDE FLUSH 10ML SYR IVF SCH (07:50)
[2019-11-19] MEDS ORDERED: PRED10TA PO (11:08)
[2019-11-19] MEDS ORDERED: CALC1TAB68 PO (11:08)
[2019-11-19 12:55] VITALS: BP 145/90
[2019-11-19] MEDS ORDERED: CALCIUM/VITAMIN D3 250-125 TABLET PO SCH (21:00)
== END 2019-11-19 13:10 | disposition home or self-care (01) | DRG 203 ==
LOC: ED 12:25 → 4WST 12:40 → DCLOUNGE 11-19 13:03
PROVIDERS: ADMIT Internal Medicine; ATTEND Internal Medicine
DX: J45.52 Severe persistent asthma with status asthmaticus (principal); T38.0X5A Adverse effect of glucocorticoids and synthetic analogues, initial encounter; R09.02 Hypoxemia; R73.9 Hyperglycemia, unspecified; J44.9 Chronic obstructive pulmonary disease, unspecified; Z90.81 Acquired absence of spleen; Z87.891 Personal history of nicotine dependence; Z82.49 Family history of ischemic heart disease and other diseases of the circulatory system; Z83.3 Family history of diabetes mellitus; Z91.19 Patient's noncompliance with other medical treatment and regimen; Z92.21 Personal history of antineoplastic chemotherapy; Z79.52 Long term (current) use of systemic steroids; Y92.89 Other specified places as the place of occurrence of the external cause; Z99.81 Dependence on supplemental oxygen; Z85.71 Personal history of Hodgkin lymphoma
CPT/HCPCS: 36415; 99285; J7613; J7620; J7626; 71045; 80048; 80053; 82962; 83036; 85025; 93005; 94640; G0378; J1650; J1815; J2930

== ENCOUNTER 2019-11-22 22:34 | Inpatient (IN) | payer OTHER ==
[~2019-11-22] VITALS: Ht 170.2 cm; Wt 78.0 kg
[~2019-11-22 22:34] MED LIST changes: +CALC1TAB68 PO
[2019-11-22] MEDS ORDERED: ALBUTEROL/IPRATROPIUM 2.5MG/0.5MG, 3 ML NPPB ONE (23:00)
--- NOTE | 2019-11-22 23:07 | NUR ---
PT. TO ROOM FROM LOBBY ABOUT 10 MIN PRIOR TO THIS NOTE. PT. TO ED WITH C/O COUGH X 1.5 WEEKS, NOW WITH CHEST "BURNING" WORSE WITH COUGHING. PT. REPORTS DIZZINESS STARTING TODAY. EKG WAS DONE IN TRIAGE AND SIGNED BY JATINDER. PT. WITH CONSTANT DRY COUGH, LUNGS COARSE IN ALL RIVERA. RT HAS BEEN CALLED. CONTINUOUS PULSE OX, B/P, AND HEART MONITORS WERE PLACED. SINUS TACH NOTED ON MONITOR. O2 SAT 88% ON RA. PT. PLACED ON 2L NC WITH IMMEDIATE INCREASE TO >92%. PT. TO X-RAY VIA [facility] AT THIS TIME.
--- NOTE | 2019-11-22 23:10 | NUR ---
assessment made. ERP at bedside.
[2019-11-22 23:12] LABS: RAPID INFLUENZA A Negative (Negative); RAPID INFLUENZA B Negative (Negative)
--- NOTE | 2019-11-22 23:13 | NUR ---
REPORT TO ANGEL LUIS SOLIS TO ASSUME PRIMARY CARE.
--- NOTE | 2019-11-22 23:25 | NUR ---
IV placed. blood and BC drawn by photographic laboratory technician. TAD spence. RT at bedside for breathing treatment.
[2019-11-22] MEDS ORDERED: SODIUM CHLORIDE 0.9% 1,000ML IVBOLUS ONE (23:30)
[2019-11-22 23:41] LABS: MEAN CORPUSCULAR HEMOGLOBIN 30.8 pg (27.5-34.5); MEAN CORPUSCULAR HGB CONC 33.7 g/dL (33.2-36.2); MEAN CORPUSCULAR VOLUME 91.5 fL (81-97); MEAN PLATELET VOLUME 7.7 fL (7.4-10.4); PLATELET COUNT 375 x10^3/uL (130-400); RED BLOOD COUNT 5.28 x10^6/uL (4.38-5.82); RED CELL DISTRIBUTION WIDTH 14.6 % (9.4-14.8)
[2019-11-22 23:42] LABS: ANION GAP 4 mmol/L (5-15); CALCIUM 8.6 mg/dL (8.5-10.1); CHLORIDE 101 mmol/L (98-107); CREATININE 1.13 mg/dL (0.7-1.3)
[2019-11-22 23:59] LABS: MD YES
[2019-11-23 00:01] LABS: <RBC MORPHOLOGY> NORMAL; BAND#(MANUAL) 0.68 x10^3/uL; BANDS%(MANUAL) 2 % (0-7); LYMPH#(MANUAL) 1.02 x10^3/uL (1-3.4); LYMPHS% (MANUAL) 3 % (22-44); MONOS#(MANUAL) 2.04 x10^3/uL (0.3-2.7); MONOS% (MANUAL) 6 % (2-9); SEG#(MANUAL) 30.26 x10^3/uL (1.8-6.8); SEGS% (MANUAL) 89 % (42-75)
[2019-11-23 00:02] LABS: <PLATELET ESTIMATE> ADEQUATE; <PLT MORPHOLOGY> NORMAL PLT MORPH; PMNS WITH VACUOLES 1+
--- NOTE | 2019-11-23 00:12 | NUR ---
BREAK RN: PT. RESTING ON GURNEY WITH CONTINUED RAPID RESPIRATIONS. STATES HE FEELS A LITTLE BIT BETTER AFTER RESP TX. HR REMAINS ELEVATED DESPITE COMPLETION OF 1L NS BOLUS. VS UPDATED.
--- NOTE | 2019-11-23 00:20 | NUR ---
BREAK RN: DR. KRAMER UPDATED ON PT. VS DESPITE IVF; ALL RESULTS BACK, DR. KRAMER TO DISCUSS POC WITH PT. AND FAMILY AT BS.
--- NOTE | 2019-11-23 00:28 | NUR ---
BREAK RN: REPORT TO ANGEL LUIS WHITING TO ASSUME CARE OF PT. AT THIS TIME.
[2019-11-23] MEDS ORDERED: HYDROcodone/APAP 10/325 MG TABLET PO ONE (00:30)
[2019-11-23] MEDS ORDERED: SODIUM CHLORIDE 0.9% 1,000ML IVBOLUS ONE (00:30)
[2019-11-23] MEDS ORDERED: ACETAMINOPHEN 325 MG TABLET PO ONE (00:30)
[2019-11-23] MEDS ORDERED: HYDROcodone/APAP 10/325 MG TABLET ONE (00:38)
[2019-11-23] MEDS ORDERED: OMNIPAQUE 350 MG/ML, 100ML BOTTLE ONE (00:50)
--- NOTE | 2019-11-23 01:16 | NUR ---
patient went to bathroom with steady gait.
[2019-11-23] MEDS ORDERED: PIPERACILLIN/TAZO/PMX 3.375GM 50 ML IV ONE (01:30)
[2019-11-23] MEDS ORDERED: AZITHROMYCIN 500 MG in SODIUM CHLORIDE 0.9% 250 ML IV ONE (01:30)
[2019-11-23] MEDS ORDERED: ACETAMINOPHEN 325 MG TABLET PO PRN (02:00)
[2019-11-23] MEDS ORDERED: GUAIFENESIN/COD200MG-20MG/10ML LIQUID PO PRN (02:00)
[2019-11-23 02:28] VITALS: BP 101/65
[2019-11-23] MEDS: methylPREDNISolone SOD SUCC 125 MG/2 ML IVPush SCH ×4 (03:30→21:16)
[2019-11-23] MEDS: CEFTRIAXONE PMX 2GM/50ML 50 ML IV SCH (04:32)
[2019-11-23 06:53] VITALS: BP 115/79
[2019-11-23] MEDS: BUDESONIDE 0.5 MG/2 ML INHA NPPB SCH ×2 (07:10→21:22)
[2019-11-23] MEDS: ALBUTEROL/IPRATROPIUM 2.5MG/0.5MG, 3 ML NPPB SCH ×4 (07:10→21:22)
[2019-11-23] MEDS: ENOXAPARIN 40 MG/0.4 ML SQ SCH (08:00)
[2019-11-23] MEDS: DOXYCYCLINE 100MG CAP PO SCH ×2 (09:16→21:16)
[2019-11-23 13:41] VITALS: BP 116/75
[2019-11-23] MEDS: SODIUM CHLORIDE 0.9% 1,000 ML IV SCH ×2 (14:00→21:19)
[2019-11-23 20:04] VITALS: BP 129/76
[2019-11-24 01:39] VITALS: BP 137/71
[2019-11-24] MEDS: methylPREDNISolone SOD SUCC 125 MG/2 ML IVPush SCH ×4 (04:17→22:03)
[2019-11-24] MEDS: CEFTRIAXONE PMX 2GM/50ML 50 ML IV SCH (04:17)
[2019-11-24 06:10] LABS: MEAN CORPUSCULAR HEMOGLOBIN 30.9 pg (27.5-34.5); MEAN CORPUSCULAR HGB CONC 33.3 g/dL (33.2-36.2); MEAN CORPUSCULAR VOLUME 92.8 fL (81-97); MEAN PLATELET VOLUME 8.1 fL (7.4-10.4); PLATELET COUNT 333 x10^3/uL (130-400); RED BLOOD COUNT 4.63 x10^6/uL (4.38-5.82); RED CELL DISTRIBUTION WIDTH 14.5 % (9.4-14.8)
[2019-11-24] MEDS: SODIUM CHLORIDE 0.9% 1,000 ML IV SCH ×2 (06:10→22:03)
[2019-11-24 06:20] LABS: ALBUMIN 2.4 g/dL (3.4-5.0); ANION GAP 9 mmol/L (5-15); CALCIUM 8.4 mg/dL (8.5-10.1); CHLORIDE 108 mmol/L (98-107)
[2019-11-24 06:24] LABS: ALANINE AMINOTRANSFERASE 47 U/L (12-78); ALKALINE PHOSPHATASE 61 U/L (45-117); BILIRUBIN,TOTAL 0.3 mg/dL (0.2-1.0); CREATININE 0.96 mg/dL (0.7-1.3); TOTAL PROTEIN 6.2 g/dL (6.4-8.2)
[2019-11-24 06:46] LABS: MD YES
[2019-11-24 06:49] LABS: LYMPH#(MANUAL) 0.76 x10^3/uL (1-3.4); LYMPHS% (MANUAL) 2 % (22-44); MONOS#(MANUAL) 1.13 x10^3/uL (0.3-2.7); MONOS% (MANUAL) 3 % (2-9); SEG#(MANUAL) 35.91 x10^3/uL (1.8-6.8); SEGS% (MANUAL) 95 % (42-75)
[2019-11-24 06:51] LABS: POLYCHROMASIA 1+
[2019-11-24 06:52] LABS: TOXIC GRAN 1+
[2019-11-24 06:54] LABS: ECHINOCYTES 1+
[2019-11-24 06:56] LABS: <PLATELET ESTIMATE> ADEQUATE; <PLT MORPHOLOGY> NORMAL PLT MORPH
[2019-11-24] MEDS: ALBUTEROL/IPRATROPIUM 2.5MG/0.5MG, 3 ML NPPB SCH ×4 (06:56→20:00)
[2019-11-24 07:56] VITALS: BP 126/77
[2019-11-24] MEDS: ENOXAPARIN 40 MG/0.4 ML SQ SCH (08:00)
[2019-11-24] MEDS: DOXYCYCLINE 100MG CAP PO SCH ×2 (09:00→22:03)
[2019-11-24] MEDS: BUDESONIDE 0.5 MG/2 ML INHA NPPB SCH ×2 (09:00→20:04)
[2019-11-24 14:19] VITALS: BP 133/80
[2019-11-24 20:36] VITALS: BP 145/83
== END 2019-11-25 00:10 | disposition left against medical advice (07) | DRG 871 ==
LOC: ED 11-23 01:56 → EDIP 11-23 02:12 → 4NE 11-23 02:25
PROVIDERS: ADMIT Family Medicine; ATTEND Family Medicine
DX: A41.9 Sepsis, unspecified organism (principal); J18.0 Bronchopneumonia, unspecified organism; J96.20 Acute and chronic respiratory failure, unspecified whether with hypoxia or hypercapnia; J44.0 Chronic obstructive pulmonary disease with (acute) lower respiratory infection; J45.901 Unspecified asthma with (acute) exacerbation; E86.0 Dehydration; F17.200 Nicotine dependence, unspecified, uncomplicated; Z90.81 Acquired absence of spleen; Z99.81 Dependence on supplemental oxygen; Z53.29 Procedure and treatment not carried out because of patient's decision for other reasons
CPT/HCPCS: 36415; 84145; 87400; 96361; 96374; 99291; J7620; J7626; 71046; 71275; 80048; 80053; 83605; 85025; 87040; 93005; 94640; G0378; J0456; J0696; Q9967; J2930; J7030; J7050

== ENCOUNTER 2020-07-21 03:36 | Inpatient (IN) | payer OTHER ==
[~2020-07-21] VITALS: Ht 172.7 cm; Wt 82.0 kg
[2020-07-21 04:55] LABS: MEAN CORPUSCULAR HEMOGLOBIN 30.2 pg (27.5-34.5); MEAN CORPUSCULAR HGB CONC 33.5 g/dL (33.2-36.2); PLATELET COUNT 397 x10^3/uL (130-400); RED BLOOD COUNT 4.86 x10^6/uL (4.38-5.82); RED CELL DISTRIBUTION WIDTH 14.1 % (9.4-14.8)
[2020-07-21 05:05] LABS: ALBUMIN 3.2 g/dL (3.4-5.0); ANION GAP 6 mmol/L (5-15); CALCIUM 8.5 mg/dL (8.5-10.1); CHLORIDE 108 mmol/L (98-107); CREATININE 1.18 mg/dL (0.7-1.3)
[2020-07-21 05:09] LABS: TROPONIN I 0.029 ng/mL (0.000-0.045)
[2020-07-21] MEDS ORDERED: methylPREDNISolone SOD SUCC 125 MG/2 ML ONE ×3 (05:10→14:36)
[2020-07-21] MEDS ORDERED: AZITHROMYCIN 500 MG in SODIUM CHLORIDE 0.9% 250 ML IV ONE (05:30)
[2020-07-21] MEDS ORDERED: methylPREDNISolone SOD SUCC 125 MG/2 ML IVPush SCH (05:30)
[2020-07-21] MEDS: methylPREDNISolone SOD SUCC 125 MG/2 ML IVPush ONE (05:30)
[2020-07-21 05:32] LABS: MD YES
--- NOTE | 2020-07-21 05:37 | NUR ---
Patient comes in with complaint of SOB and difficulty catching his breath. Patient states its been going on x2 week. Patient states that he has an extensive history with breathing problems and that this is just his asthma. Patient able to talk in full sentences, lung sounds dimished throughout. Patient states he becomes more SOB when walking or having to exert himself. Patient was 88% on RA. Placed on 2L NC O2 has been above 95% since. Placed on engine monitor, IV established, labs drawn. Patient resting comfortably at this time. Will con't to monitor
[2020-07-21 05:38] LABS: BAND#(MANUAL) 0.28 x10^3/uL; BANDS%(MANUAL) 2 % (0-7); EOS#(MANUAL) 0.56 x10^3/uL (0.0-0.4); EOS% (MANUAL) 4 % (1-7); LYMPHS% (MANUAL) 10 % (22-44); METAMYELOCYTES# (MANUAL) 0.14 x10^3/uL (0-0); METAMYELOCYTES% (MANUAL) 1 % (0-1); MONOS#(MANUAL) 1.26 x10^3/uL (0.3-2.7); MONOS% (MANUAL) 9 % (2-9); MYELOCYTES# (MANUAL) 0.28 x10^3/uL (0-0); MYELOCYTES% (MANUAL) 2 % (0-0); REACTIVE LYMPHS # (MANUAL) 0.14 x10^3/uL (0-0); REACTIVE LYMPHS % (MANUAL) 1 % (0-0); SEG#(MANUAL) 9.94 x10^3/uL (1.8-6.8); SEGS% (MANUAL) 71 % (42-75)
[2020-07-21 05:39] LABS: <PLATELET ESTIMATE> ADEQUATE; <PLT MORPHOLOGY> NORMAL PLT MORPH; ECHINOCYTES 1+; POLYCHROMASIA 1+; TOXIC GRAN 1+
[2020-07-21] MEDS ORDERED: CEFTRIAXONE PMX 1GM/50ML 50 ML IV ONE (06:00)
--- NOTE | 2020-07-21 07:00 | NUR ---
REPORT FROM SERGEY, ASSUME CARE OF PT AT THIS TIME. REVIEW OF CHART AND MEDS. HOSPITAL BED ORDERED FROM [facility]. PT SLEEPING AT THIS TIME.
[2020-07-21] MEDS ORDERED: ONDANSETRON ODT 4 MG PO PRN (07:30)
[2020-07-21] MEDS ORDERED: POLYETHYLENE GLYCOL 17 GM PACKET PO PRN (07:30)
[2020-07-21] MEDS ORDERED: ONDANSETRON 2MG/ML, 2ML IVPush PRN (07:30)
[2020-07-21] MEDS ORDERED: IBUPROFEN 600 MG TABLET PO PRN (07:30)
[2020-07-21] MEDS ORDERED: ACETAMINOPHEN 325 MG TABLET PO PRN (07:30)
[2020-07-21] MEDS ORDERED: ENOXAPARIN 40 MG/0.4 ML ONE (07:46)
[2020-07-21] MEDS ORDERED: CEFTRIAXONE PMX 1GM/50ML 50 ML ONE (07:46)
[2020-07-21] MEDS: ENOXAPARIN 40 MG/0.4 ML SQ SCH (07:49)
[2020-07-21] MEDS: LACTATED RINGERS 1,000 ML IV SCH ×2 (07:50→18:26)
[2020-07-21 07:56] LABS: C-REACTIVE PROTEIN, QUANT 1.6 mg/dL (0.02-0.49)
[2020-07-21] MEDS: CEFTRIAXONE PMX 1GM/50ML 50 ML IV SCH (07:58)
[2020-07-21] MEDS ORDERED: ALBUTEROL HFA 90 MCG/SPRAY INH PRN (08:00)
--- NOTE | 2020-07-21 08:08 | NUR ---
MEAL TRAY PROVIDED.
[2020-07-21 08:10] LABS: HCT (SEDRATE) 43.8 % (39.2-51.8)
[2020-07-21] MEDS ORDERED: BUDESONIDE 0.5 MG/2 ML INHA ONE (08:34)
[2020-07-21] MEDS ORDERED: CHOLECALCIFEROL 5,000u TAB ONE (08:38)
[2020-07-21] MEDS ORDERED: SENNA/DOCUSATE TABLET ONE (08:38)
[2020-07-21] MEDS ORDERED: ZINC SULFATE 220 MG CAPSULE ONE (08:38)
[2020-07-21] MEDS ORDERED: THIAMINE 100MG TABLET ONE (08:38)
[2020-07-21] MEDS ORDERED: ASCORBIC ACID 500 MG TABLET ONE (08:39)
[2020-07-21] MEDS: ASCORBIC ACID 500 MG TABLET PO SCH ×2 (08:59→21:43)
[2020-07-21] MEDS ORDERED: BUDESONIDE 0.5 MG/2 ML INHA INH SCH (09:00)
[2020-07-21] MEDS: CHOLECALCIFEROL 5,000u TAB PO SCH (09:00)
[2020-07-21] MEDS: SENNA/DOCUSATE TABLET PO SCH (09:00)
[2020-07-21] MEDS: FLUTICASONE/VILANTEROL 100-25MCG/INH INH SCH ×2 (09:00→11:03)
[2020-07-21] MEDS: methylPREDNISolone SOD SUCC 125 MG/2 ML IVPush SCH ×3 (09:00→21:44)
[2020-07-21] MEDS: THIAMINE 100MG TABLET PO SCH ×2 (09:01→21:44)
[2020-07-21] MEDS: ZINC SULFATE 220 MG CAPSULE PO SCH (09:01)
--- NOTE | 2020-07-21 10:27 | NUR ---
TASK RN: CALLED [facility]HA IN REGARDS TO BREO ELIPTA INHALER SAYING IT WAS "NON ADMIN" ON THE DEC. THE CLINICAL INFORMATION SYSTEMS DIRECTOR SAID "ONCE IT GETS VERIFIED BY THE PHARMACIST WE WILL SEND IT DOWN"
--- NOTE | 2020-07-21 11:03 | NUR ---
YESENIA KIM OBTAINED FROM PHARMACY AND PROVIDED TO PT. PT MOVED TO HOSPITAL BED. ED LUNCH TRAY PROVIDED.
--- NOTE | 2020-07-21 13:13 | NUR ---
PT SLEEPING, NAD. LUNCH TRAY PROVIDED. CALL LIGHT AND URINAL WITHIN REACH.
--- NOTE | 2020-07-21 14:54 | NUR ---
PT WATCHING TV, NAD. VSS. CALL LIGHT WITHIN REACH.
--- NOTE | 2020-07-21 16:45 | NUR ---
RETURN FROM BREAK. PT SLEEPING INTERMITTENTLY, NAD. CALL LIGHT WITHIN REACH. ED DINNER TRAY ORDERED.
[2020-07-21 18:34] VITALS: BP 136/90
[2020-07-21 20:00] VITALS: BP 142/96
[2020-07-21] MEDS: MELATONIN 3 MG TABLET PO SCH (21:00)
[2020-07-22 02:00] VITALS: BP 120/75
[2020-07-22] MEDS: methylPREDNISolone SOD SUCC 125 MG/2 ML IVPush SCH ×4 (03:37→22:00)
[2020-07-22 08:00] VITALS: BP 135/84
[2020-07-22] MEDS: FLUTICASONE/VILANTEROL 100-25MCG/INH INH SCH (08:50)
[2020-07-22] MEDS: ENOXAPARIN 40 MG/0.4 ML SQ SCH (09:02)
[2020-07-22] MEDS: ASCORBIC ACID 500 MG TABLET PO SCH ×2 (09:04→22:01)
[2020-07-22] MEDS: CEFTRIAXONE PMX 1GM/50ML 50 ML IV SCH (09:04)
[2020-07-22] MEDS: SENNA/DOCUSATE TABLET PO SCH (09:04)
[2020-07-22] MEDS: ZINC SULFATE 220 MG CAPSULE PO SCH (09:05)
[2020-07-22] MEDS: AZITHROMYCIN 500 MG TABLET PO SCH (09:05)
[2020-07-22] MEDS: THIAMINE 100MG TABLET PO SCH ×2 (09:05→22:02)
[2020-07-22] MEDS: CHOLECALCIFEROL 5,000u TAB PO SCH (09:05)
[2020-07-22 14:00] VITALS: BP 109/65
[2020-07-22 20:20] VITALS: BP 109/65
[2020-07-22] MEDS: MELATONIN 3 MG TABLET PO SCH (21:00)
[2020-07-23 02:20] VITALS: BP 109/65
[2020-07-23 04:44] LABS: BASOPHILS % (AUTO) 0 % (0-1); EOSINOPHILS % (AUTO) 0 % (1-7); LYMPHOCYTES % (AUTO) 3 % (22-44); MEAN CORPUSCULAR HEMOGLOBIN 30.2 pg (27.5-34.5); MEAN CORPUSCULAR HGB CONC 33.4 g/dL (33.2-36.2); MEAN PLATELET VOLUME 7.7 fL (7.4-10.4); MONOCYTES % (AUTO) 4 % (2-9); NEUTROPHILS % (AUTO) 93 % (42-75); PLATELET COUNT 429 x10^3/uL (130-400); RED BLOOD COUNT 4.61 x10^6/uL (4.38-5.82); RED CELL DISTRIBUTION WIDTH 13.6 % (9.4-14.8)
[2020-07-23] MEDS: methylPREDNISolone SOD SUCC 125 MG/2 ML IVPush SCH (05:39)
[2020-07-23 05:54] LABS: MD SCAN
[2020-07-23] MEDS: ENOXAPARIN 40 MG/0.4 ML SQ SCH (07:30)
[2020-07-23] MEDS: CEFTRIAXONE PMX 1GM/50ML 50 ML IV SCH (08:31)
[2020-07-23] MEDS: AZITHROMYCIN 500 MG TABLET PO SCH (08:31)
[2020-07-23] MEDS: CHOLECALCIFEROL 5,000u TAB PO SCH (08:31)
[2020-07-23] MEDS: ASCORBIC ACID 500 MG TABLET PO SCH (08:31)
[2020-07-23] MEDS: THIAMINE 100MG TABLET PO SCH (08:31)
[2020-07-23] MEDS: ZINC SULFATE 220 MG CAPSULE PO SCH (08:31)
[2020-07-23] MEDS: SENNA/DOCUSATE TABLET PO SCH (08:32)
[2020-07-23 08:34] VITALS: BP 135/92
[2020-07-23] MEDS ORDERED: SULFAMETH./TRIMETHOPRIM DS 800MG/160MG TABLET PO SCH (09:00)
[2020-07-23] MEDS ORDERED: PRED20TA PO (10:22)
[2020-07-23] MEDS ORDERED: SULF1TAB24 PO (10:22)
[2020-07-23] MEDS ORDERED: AZIT500T10 PO (10:22)
[2020-07-23] MEDS ORDERED: AMOX1TAB64 PO (10:22)
[2020-07-23] MEDS ORDERED: methylPREDNISolone SOD SUCC 40 MG/ML IVPush SCH (10:30)
[2020-07-23] MEDS: FLUTICASONE/VILANTEROL 100-25MCG/INH INH SCH (10:45)
[2020-07-23] MEDS ORDERED: FLU VACC QS2020-21(6MOS UP)/PF 60MCG/0.5 ML SYR IM ONE (12:30)
[2020-07-23 13:00] VITALS: BP 103/69
== END 2020-07-23 13:34 | disposition home or self-care (01) | DRG 871 ==
LOC: ED 04:12 → EDIP 04:15 → ICU 18:08 → ORIP 07-22 12:17 → ICU 07-22 12:20
PROVIDERS: ADMIT Family Medicine; ATTEND Hospitalist
DX: A41.9 Sepsis, unspecified organism (principal); J96.01 Acute respiratory failure with hypoxia; J86.9 Pyothorax without fistula; D84.9 Immunodeficiency, unspecified; J45.901 Unspecified asthma with (acute) exacerbation; F17.200 Nicotine dependence, unspecified, uncomplicated; J43.9 Emphysema, unspecified; Z20.828 Contact with and (suspected) exposure to other viral communicable diseases; Z85.72 Personal history of non-Hodgkin lymphomas; Z90.81 Acquired absence of spleen
CPT/HCPCS: 36415; 71045; 80048; 82040; 82728; 83605; 83615; 83880; 84145; 84484; 85025; 85379; 85651; 86140; 87040; 87081; 87635; 90686; 93005; 94640; 96365; 96375; 99285; G0378; J0456; J0696; J1650; J2920; J2930; J7050; J7120

== ENCOUNTER 2020-12-29 12:54 | Emergency (ER) | payer OTHER ==
[~2020-12-29] VITALS: Ht 170.2 cm; Wt 79.9 kg
[~2020-12-29 12:54] MED LIST changes: +AMOX1TAB64 PO; +AZIT500T10 PO; +SULF1TAB24 PO
[2020-12-29] MEDS ORDERED: ALBUTEROL/IPRATROPIUM 2.5MG/0.5MG, 3 ML NPPB ONE (13:30)
--- NOTE | 2020-12-29 13:47 | NUR ---
casino cage supervisor: pt from lobby to room 10
[2020-12-29] MEDS ORDERED: ALBUTEROL/IPRATROPIUM 2.5MG/0.5MG, 3 ML ONE (13:52)
[2020-12-29] MEDS ORDERED: MAGNESIUM SULFATE PMX 2GM/50ML 50 ML IVPB ONE (14:00)
[2020-12-29] MEDS ORDERED: SODIUM CHLORIDE FLUSH 10ML SYR IVF ONE (14:00)
[2020-12-29] MEDS ORDERED: methylPREDNISolone SOD SUCC 125 MG/2 ML IV ONE (14:00)
--- NOTE | 2020-12-29 14:01 | NUR ---
BREATHING TX IN PROGRESS.
[2020-12-29] MEDS ORDERED: methylPREDNISolone SOD SUCC 125 MG/2 ML ONE (14:14)
[2020-12-29] MEDS ORDERED: MAGNESIUM SULFATE PMX 2GM/50ML 50 ML ONE (14:14)
--- NOTE | 2020-12-29 15:12 | NUR ---
PT RESTING ON GURNEY W/ CALL LIGHT IN REACH AND SIDE RAILS UPX2. RESP EVEN AND UNLABORED, NADN. IV MAG INFUSING APPROPRIATELY.
--- NOTE | 2020-12-29 15:47 | NUR ---
AT BEDSIDE FOR RECHECK.
--- NOTE | 2020-12-29 16:51 | NUR ---
PER COUNTER PROFESSIONAL WHILE PT AMBULATING LOWEST O2 SAT WAS 91%. PT RANGED FROM 91-95%. UPDATED.
[2020-12-29 17:04] VITALS: BP 120/81
--- NOTE | 2020-12-29 17:31 | NUR ---
Patient given discharge instructions and they have confirmed that they understand the instructions. Patient ambulatory with steady gait.
== END 2020-12-29 17:32 | disposition home or self-care (01) ==
LOC: ED 14:25
DX: J45.41 Moderate persistent asthma with (acute) exacerbation (principal); R00.0 Tachycardia, unspecified
CPT/HCPCS: 71045; 93005; 94640; 96365; 96366; 96375; 99284; J2930; J3475

== ENCOUNTER 2021-04-07 04:41 | Emergency (ER) | payer OTHER ==
[~2021-04-07] VITALS: Ht 172.7 cm; Wt 84.2 kg
[~2021-04-07 04:41] MED LIST changes: +SULF-23 PO; -SULF1TAB24 PO
--- NOTE | 2021-04-07 04:57 | NUR ---
pt presents to ER for an asthma attack, pt states that he has had asthma attacks before and it feels exactly the same, pt SOB, pt speaking in full sentences, at bedside to discuss POC
[2021-04-07] MEDS ORDERED: IPRATROPIUM 0.5 MG/2.5 ML INHA NPPB ONE (05:00)
[2021-04-07] MEDS ORDERED: ALBUTEROL SULFATE 2.5 MG/3 ML ONE (05:08)
[2021-04-07] MEDS ORDERED: IPRATROPIUM 0.5 MG/2.5 ML INHA ONE (05:09)
[2021-04-07] MEDS: ALBUTEROL 0.5%, 20ML NPPB SCH ×2 (05:15→05:54)
[2021-04-07] MEDS ORDERED: SODIUM CHLORIDE 0.9% 1,000ML IVBOLUS ONE (05:30)
[2021-04-07 05:36] LABS: BASOPHILS % (AUTO) 1 % (0-1); EOSINOPHILS % (AUTO) 12 % (1-7); LYMPHOCYTES % (AUTO) 17 % (22-44); MEAN CORPUSCULAR HEMOGLOBIN 30.3 pg (27.5-34.5); MEAN CORPUSCULAR HGB CONC 34.3 g/dL (33.2-36.2); MEAN PLATELET VOLUME 7.6 fL (7.4-10.4); MONOCYTES % (AUTO) 10 % (2-9); NEUTROPHILS % (AUTO) 61 % (42-75); PLATELET COUNT 318 x10^3/uL (130-400); RED BLOOD COUNT 5.16 x10^6/uL (4.38-5.82); RED CELL DISTRIBUTION WIDTH 15.1 % (9.4-14.8)
[2021-04-07 05:43] LABS: ALBUMIN 3.2 g/dL (3.4-5.0); CALCIUM 8.3 mg/dL (8.5-10.1)
[2021-04-07 05:48] LABS: ALANINE AMINOTRANSFERASE 26 U/L (12-78); ALKALINE PHOSPHATASE 72 U/L (45-117); BILIRUBIN,TOTAL 0.4 mg/dL (0.2-1.0); CREATININE 0.94 mg/dL (0.7-1.3); TOTAL PROTEIN 6.7 g/dL (6.4-8.2); TROPONIN I < 0.015 ng/mL (0.000-0.045)
[2021-04-07 05:49] LABS: ANION GAP 6 mmol/L (5-15); CHLORIDE 107 mmol/L (98-107)
--- NOTE | 2021-04-07 06:10 | NUR ---
PT LAYING IN BED, A/OX4, PTS BREATHING NOT LABORED WHEN PT FIRST ARRIVED, WHEEZING NO LONGER HEARD PT INHALES AND EXHALES, PT STATES HE DOES FEEL A LITTLE BETTER NOW WELL, ALL NEEDS IN REACH, CALL LIGHT IN REACH, SIDE RAILS UP WITH WHEEL LOCKS ENGAGED.
--- NOTE | 2021-04-07 06:48 | NUR ---
REPORT FROM ANGEL LUIS BRANCH
--- NOTE | 2021-04-07 07:05 | NUR ---
PT RESTING ON GURNEY, NADN/VSS. RESPIRATIONS EVEN AND UNBLABORED. CALL LIGHT WITHIN REACH. NO NEEDS AT THIS TIME.
[2021-04-07 08:01] VITALS: BP 122/71
--- NOTE | 2021-04-07 08:54 | NUR ---
Patient given discharge instructions and RX, they have confirmed that they understand the instructions. Patient ambulatory with steady gait.
== END 2021-04-07 08:55 | disposition home or self-care (01) ==
LOC: ED 08:45
DX: J45.42 Moderate persistent asthma with status asthmaticus (principal); R06.02 Shortness of breath; R00.0 Tachycardia, unspecified; I49.3 Ventricular premature depolarization; R06.00 Dyspnea, unspecified; F17.210 Nicotine dependence, cigarettes, uncomplicated
CPT/HCPCS: 36415; 71045; 80053; 83605; 83880; 84145; 84484; 85025; 87040; 93005; 94640; 96360; 96361; 99285; J7030; J7512; J7644

== ENCOUNTER 2021-06-29 19:10 | Emergency (ER) | payer OTHER ==
[~2021-06-29] VITALS: Ht 172.7 cm; Wt 82.6 kg
[2021-06-29] MEDS ORDERED: SODIUM CHLORIDE FLUSH 10ML SYR IVF ONE (19:30)
[2021-06-29] MEDS ORDERED: ALBUTEROL/IPRATROPIUM 2.5MG/0.5MG, 3 ML NPPB ONE (19:30)
[2021-06-29] MEDS ORDERED: SODIUM CHLORIDE 0.9% 1,000ML IVBOLUS ONE (19:30)
[2021-06-29] MEDS ORDERED: ALBUTEROL/IPRATROPIUM 2.5MG/0.5MG, 3 ML ONE ×2 (19:47→21:30)
[2021-06-29 21:18] VITALS: BP 133/74
[2021-06-29] MEDS ORDERED: methylPREDNISolone SOD SUCC 125 MG/2 ML ONE (21:30)
[2021-06-29] MEDS ORDERED: ALBUTEROL/IPRATROPIUM 2.5MG/0.5MG, 3 ML NPPB SCH (21:30)
[2021-06-29] MEDS ORDERED: methylPREDNISolone SOD SUCC 125 MG/2 ML IV ONE (21:30)
== END 2021-06-29 22:44 | disposition home or self-care (01) ==
LOC: ED 19:30
DX: J45.901 Unspecified asthma with (acute) exacerbation (principal); F17.200 Nicotine dependence, unspecified, uncomplicated; R94.31 Abnormal electrocardiogram [ECG] [EKG]
CPT/HCPCS: 71045; 93005; 94640; 96361; 96374; 99284; J2930; J7030